=== PATIENT | female | born 1970 | race Caucasian/White ===

== ENCOUNTER → 2017-01-15 | Outpatient (CLI) | payer OTHER ==
[~2017-01-15] MED LIST: AMBIEN10 MG PO; AUGMENTIN875 MG PO; AZITHROMYCIN250 MG1 PO; CARAFATE1 GM PO; FLONASE16 G1 BOTH NARES; FLOVENT 11120 INHALA IH; FLUTICASONE PRO16 GM BOTH NARES; IBUPROFEN800 MG PO; LAMOTRIGINE25 M2 PO; LEVOFLOXACIN500 MG PO; LEXAPRO5 MG PO; MIRTAZAPINE15 MG PO; MOTRIN800 MG PO; OMEPRAZOLE20 MG PO; OXCARBAZEPINE150 MG PO; OXYCODONE-ACET1 EACH PO; PERCOCET 5/31 TABLET PO; PREDNISONE10 M1 PO; PREDNISONE20 MG PO; PROVENTIL17 GM IH; RANITIDINE HCL150 M1 PO; RISPERDAL2 MG PO; SAPHRIS5 MG SL; SEROQUEL50 MG PO; SYMBICORT60 INHALAT IH; TESSALON200 MG PO; TOPIRAMATE25 MG PO; TRAZODONE HCL50 MG PO; VENTOLIN HFA18 GM IH; WELLBUTRIN SR150 MG PO; XANAX0.5 MG PO; ZANTAC150 MG PO; ZOCOR20 MG PO
== END | disposition home or self-care (01) ==
LOC: RES 09:31
DX: Z02.71 Encounter for disability determination (principal)
CPT/HCPCS: 94060; 94729; 94760

== ENCOUNTER 2017-07-05 16:37 | Emergency (ER) | payer OTHER ==
[~2017-07-05] VITALS: Ht 160 cm; Wt 132.8 kg
[2017-07-05 17:33] LABS: BASOPHIL (%) 0.5 % (0-1); EOSINOPHIL (%) 1.8 % (0-5); EOSINOPHIL COUNT 0.2 K/uL (0-0.3); HEMOGLOBIN 14.4 G/DL (11.9-15.5); IMMATURE GRANULOCYTE (%) 0.2 % (0.0-0.7); LYMPHOCYTE COUNT 2.2 K/uL (1.0-2.8); MCH 32.5 PG (29.0-34.0); MCHC 34.3 G/DL (30.0-36.0); MCV 94.8 FL (83-99); MONOCYTE (%) 5.3 % (3-12); MONOCYTE COUNT 0.4 K/uL (0-0.8); NEUTROPHIL (%) 65.2 % (45-76); NEUTROPHIL COUNT 5.3 K/uL (1.8-6.4); PLATELET COUNT 281 K/uL (156-360); RBC DIS.WIDTH-CV 12.4 % (11.8-14.6); RBC DIS.WIDTH-SD 43.3 % (39-53); RED BLOOD COUNT 4.43 M/uL (3.80-5.20); WHITE BLOOD COUNT 8.2 K/uL (4.1-10.2)
[2017-07-05 17:42] LABS: CHLORIDE 105 mEq/L (99-109); POTASSIUM 4.3 mEq/L (3.7-5.4)
[2017-07-05 17:43] LABS: SODIUM 140 mEq/L (136-147)
[2017-07-05 17:44] LABS: GLUCOSE 85 mg/dL (70-99)
[2017-07-05 17:48] LABS: CREATININE 0.8 mg/dL (0.6-1.3); GFR ESTIMATE (CALCULATED) > 59 mL/min/
[2017-07-05 17:48] LABS: APPEARANCE CLOUDY ((CLEAR)); BILIRUBIN NEGATIVE; BLOOD LARGE; COLOR AMBER ((YELLOW)); GLUCOSE (STRIP) 50; KETONES NEGATIVE; LEUKOCYTES TRACE; NITRITE POSITIVE; PROTEIN (STRIP) >=500; SPECIFIC GRAVITY 1.022 (1.000-1.030); UROBILINOGEN 0.2 MG/DL (0.2-1.0)
[2017-07-05 17:49] LABS: UREA NITROGEN (BUN) 9 mg/dL (9-23)
[2017-07-05 17:51] LABS: PTT 31.1 SEC (25-37)
[2017-07-05 17:58] LABS: QUANTITATIVE HCG < 4.0 MIU/ML
[2017-07-05 18:18] LABS: RED BLOOD CELLS TNTC /HPF (0-5)
[2017-07-05 18:19] LABS: UCUL ADDED? YES
[2017-07-05] MEDS ORDERED: MOTRIN600 MG PO (19:03)
[2017-07-05] MEDS ORDERED: BACTRIM,SEPT1 TABLET PO (19:03)
[2017-07-05] MEDS ORDERED: ULTRAM50 MG PO (19:27)
[2017-07-05 20:15] VITALS: BP 128/71
== END 2017-07-05 20:00 | disposition home or self-care (01) ==
LOC: EME 16:37 → RME 16:37
PROVIDERS: Physician Assistant
DX: N95.0 Postmenopausal bleeding (principal); D25.9 Leiomyoma of uterus, unspecified; N39.0 Urinary tract infection, site not specified; R93.8 Abnormal findings on diagnostic imaging of other specified body structures; R10.31 Right lower quadrant pain; M54.9 Dorsalgia, unspecified; J44.9 Chronic obstructive pulmonary disease, unspecified; F17.200 Nicotine dependence, unspecified, uncomplicated
CPT/HCPCS: 76856; 80048; 81003; 84702; 85025; 85610; 85730; 86850; 86900; 86901; 87086; 99281; 99284

== ENCOUNTER 2017-09-14 04:59 | Day surgery (SDC) | payer OTHER ==
[~2017-09-14] VITALS: Ht 167.6 cm; Wt 126.5 kg
[~2017-09-14 04:59] MED LIST changes: +BACTRIM,SEPT1 TABLET PO; +FLEXERIL10 MG PO; +MOTRIN600 MG PO; +PROAIR HFA8.5 GM IH; +TRAMADOL HCL50 MG PO; +ULTRAM50 MG PO; +ZOLOFT100 MG PO
[2017-09-14 05:52] VITALS: BP 111/64
[2017-09-14 05:59] LABS: BASOPHIL (%) 0.4 % (0-1); EOSINOPHIL COUNT 0.2 K/uL (0-0.3); HEMATOCRIT 39.4 % (36.0-46.0); HEMOGLOBIN 14.1 G/DL (11.9-15.5); IMMATURE GRANULOCYTE (%) 0.4 % (0.0-0.7); LYMPHOCYTE (%) 37.8 % (15-42); LYMPHOCYTE COUNT 2.5 K/uL (1.0-2.8); MCH 32.9 PG (29.0-34.0); MCHC 35.8 G/DL (30.0-36.0); MCV 92.1 FL (83-99); MONOCYTE (%) 5.7 % (3-12); MONOCYTE COUNT 0.4 K/uL (0-0.8); NEUTROPHIL (%) 52.7 % (45-76); NEUTROPHIL COUNT 3.5 K/uL (1.8-6.4); PLATELET COUNT 240 K/uL (156-360); RBC DIS.WIDTH-CV 12.5 % (11.8-14.6); RED BLOOD COUNT 4.28 M/uL (3.80-5.20); WHITE BLOOD COUNT 6.7 K/uL (4.1-10.2)
[2017-09-14 09:40] VITALS: BP 98/57
[2017-09-14 10:14] VITALS: BP 126/79
== END 2017-09-14 10:25 | disposition home or self-care (01) ==
LOC: SDC 04:59
PROVIDERS: Obstetrics & Gynecology
DX: C54.1 Malignant neoplasm of endometrium (principal); N95.0 Postmenopausal bleeding; R93.8 Abnormal findings on diagnostic imaging of other specified body structures; E66.01 Morbid (severe) obesity due to excess calories; Z68.41 Body mass index [BMI] 40.0-44.9, adult; J44.9 Chronic obstructive pulmonary disease, unspecified; E78.00 Pure hypercholesterolemia, unspecified; Z90.49 Acquired absence of other specified parts of digestive tract; F17.200 Nicotine dependence, unspecified, uncomplicated; Z88.5 Allergy status to narcotic agent
CPT/HCPCS: 85025; 86850; 86900; 86901; 88305; 88342 TC; 94640; J0131; J0330; J1100; J1170; J1885; J2250; J2405; J3010